=== PATIENT | male | born 1935 | race Caucasian/White ===

== ENCOUNTER → 2016-10-03 | Outpatient (CLI) | payer OTHER, BC ==
[~2016-10-03] MED LIST: GADOBUTROL 10 ML VIAL IVP ONE
[2016-10-03 12:50] LABS: CREATININE 0.9 mg/dL (0.7-1.3); GLOMERULAR FILTRATION RATE > 60
== END ==
LOC: FIMAGING 11:50
PROVIDERS: ATTEND Ophthalmology Pediatric Ophthalmology and Strabismus Specialist
DX: R94.02 Abnormal brain scan (principal); H53.2 Diplopia
CPT/HCPCS: 70543; 70553; A9585